=== PATIENT | male | born 1995 | race Two or more races ===

== ENCOUNTER 2019-08-20 08:26 | Outpatient (AMBR) | payer MEDICAID, SELFPAY ==
--- NOTE | 2019-08-15 17:12 | PTNOTE_ITS ---
PT Outpatient Daily Note Date of Service: 08/15/2019 OP Daily Note Visit Reasons: right knee pain Outpatient Physical Therapy Treatment Date: 08/15/19 Subjective: pt had language barrier which makes communication difficult. he did state he has knee pain upon visit. Objective: see flow sheet. Assessment: he did not speak much during treatment. he nodded head yes when asked if he had pain. noted pt made facial expressions all throughout treatment due to pain. pt was not able to perform fwd step lunge due to pain so dis continued that exercise. pt had limited strength and ROM during LAQs exercise due to pain. pt has poor progress for todays treatment. ice pack post ther ex. pt was limping and rubbing his knee as he walked away. Plan: continue POC per PT. Length of Time (minutes) of Treatment: 30 Minutes
--- NOTE | 2019-08-20 10:25 | PT.ODAYNRPT ---
PT Outpatient Daily Note Date of Service: 08/20/19 OP Daily Note Visit Reasons: right knee pain Outpatient Physical Therapy Treatment Date: 08/20/19 Subjective: Pt mention that his knee still hurts. No change in pain Objective: Please see flow chart for list of ther ex performed Assessment: modified prone knee flexion stretch due to ant knee pain. Pt still has difficulty with squatting manuvers. Plan: Continue with PT Length of Time (minutes) of Treatment: 30 Minutes Office Procedures PT Procedures PT Date of Service: 08/20/19 Therapeutic Exercise 30 minutes: Yes
--- NOTE | 2019-08-23 11:02 | PT.ODAYNRPT ---
PT Outpatient Daily Note Date of Service: 08/23/19 OP Daily Note Visit Reasons: right knee pain Outpatient Physical Therapy Treatment Date: 08/23/19 Subjective: Pt's knee pain is so so and in the middle. Pt still has pain with squatting and lunges Objective: Please see flow chart for list of ther ex performed Assessment: tolerate exercises with minimal pain except step lunges increase ant knee pain Plan: Continue with PT Length of Time (minutes) of Treatment: 30 Minutes Office Procedures PT Procedures PT Date of Service: 08/20/19 Therapeutic Exercise 30 minutes: Yes PT Procedures PT Date of Service: 08/23/19 Therapeutic Exercise 30 minutes: Yes
--- NOTE | 2019-08-27 13:49 | PT.ODS1RPT ---
PT OP Progress/Discharge Note Date of Service: 08/27/19 Progress Note/DC Note Progress Note/Discharge Note: DC Note Patient Information Visit Reasons: right knee pain Medical Diagnosis: M79.604 Treatment Dx #1: Right Knee Pain Service Continue Service or Discharge: Discharge Discharge Date: 08/27/19 Status Subjective: Pt mention that his knee is still hurting the same (07/23) with all activities worse with any type of bending movement. Pt continues to have limitation with deep squat, kneeling, walking, chores, and performing recreational activities. Objective: Right Knee AROM: 0 deg to 125 deg with pain Right Knee MMTs Quads: 3+/5 Hs: 3+/5 Right Hip MMTs Glute Med: 3+/5 Glute Max: 3+/5 Palpation: TTP distal tuberosity with noted anomaly Assessment: Pt continues to have ROM, pain, and strength deficits despite attempting physical therapy leading to continue limitation with ADLs. Pt will no longer benefit from physical therapy due to minimal progression towards goals. Pt was not instructed on HEP during his last session due to increase pain after exercises and stretching. Pt advised to follow up with MD for further consultation, thank you for your referrals. Plan: D/C home with HEP and follow up with MD Office Procedures PT Procedures PT Date of Service: 08/20/19 Therapeutic Exercise 30 minutes: Yes PT Procedures PT Date of Service: 08/23/19 Therapeutic Exercise 30 minutes: Yes PT Procedures PT Date of Service: 08/27/19 Therapeutic Exercise 30 minutes: Yes
== END 2019-09-13 23:59 | disposition home or self-care (01) ==
PROVIDERS: PCP Orthopaedic Surgery; Referring Provider Orthopaedic Surgery; Visit Provider Orthopaedic Surgery
DX: M25.561 Pain in right knee (principal); M79.604 Pain in right leg; G89.29 Other chronic pain; R26.2 Difficulty in walking, not elsewhere classified
CPT/HCPCS: 97110

== ENCOUNTER → 2024-06-20 | Outpatient (CLI) | payer MEDICAID, SELFPAY | END | disposition home or self-care (01) | PROVIDERS: Referring Provider Psychiatry & Neurology Neurology; Visit Provider Psychiatry & Neurology Neurology | DX: R94.01 Abnormal electroencephalogram [EEG] (principal) | CPT/HCPCS: 95816 ==